=== PATIENT | male | born 1995 | race Caucasian/White ===

== ENCOUNTER 2018-09-01 14:48 | Emergency (ER) | payer MEDICAID, OTHER ==
[~2018-09-01] VITALS: Wt 70.9 kg
[2018-09-01 14:54] VITALS: BP 138/72; PULSE 83; RESP 18
[2018-09-01] MEDS ORDERED: KETOROLAC 30 MG INJ IM STA (15:18)
[2018-09-01] MEDS ORDERED: IBUP-1542 PO (16:23)
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
== END 2018-09-01 16:36 | disposition home or self-care (01) ==
LOC: FTE 14:48
DX: S16.1XXA Strain of muscle, fascia and tendon at neck level, initial encounter (principal); S80.02XA Contusion of left knee, initial encounter; S80.01XA Contusion of right knee, initial encounter; V47.5XXA Car driver injured in collision with fixed or stationary object in traffic accident, initial encounter
CPT/HCPCS: 73030; 73562; 96372; J1885; Z7502

== ENCOUNTER 2018-12-03 11:22 | Emergency (ER) | payer OTHER ==
[~2018-12-03] VITALS: Ht 177.8 cm; Wt 70.7 kg
[~2018-12-03 11:22] MED LIST: IBUP-1542 PO; NAPR-985 PO
[2018-12-03 11:28] VITALS: BP 121/61; PULSE 94; RESP 18; Ht 177.8 cm; Wt 70.7 kg
[2018-12-03] MEDS ORDERED: IBUPROFEN 800 MG TAB PO ONE (12:30)
== END 2018-12-03 13:39 | disposition home or self-care (01) ==
LOC: FTE 11:22
DX: J02.9 Acute pharyngitis, unspecified (principal)
CPT/HCPCS: 70360; Z7502; Z7610